=== PATIENT | male | born 2000 | race Caucasian/White ===

== ENCOUNTER 2021-04-02 20:00 | Emergency (ER) | payer BC ==
[~2021-04-02] VITALS: Ht 185.4 cm; Wt 108.9 kg
[~2021-04-02 20:00] MED LIST: ALBU90I INH; PRED10 PO
== END 2021-04-02 21:41 | disposition home or self-care (01) ==
LOC: ER 20:00
DX: S01.01XA Laceration without foreign body of scalp, initial encounter (principal); W22.8XXA Striking against or struck by other objects, initial encounter; J45.909 Unspecified asthma, uncomplicated; Y92.009 Unspecified place in unspecified non-institutional (private) residence as the place of occurrence of the external cause; Z88.1 Allergy status to other antibiotic agents
CPT/HCPCS: 12002; 70450; 72125; 99284-25